=== PATIENT | male | born 1960 | race Caucasian/White ===

== ENCOUNTER 2017-09-02 07:18 | Emergency (ER) | payer MEDICARE, OTHER ==
[~2017-09-02] VITALS: Ht 175.3 cm; Wt 54.5 kg
[2017-09-02 07:22] VITALS: BP 132/70; PULSE 83; RESP 15; TEMP 98.2; O2SAT 99
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
== END 2017-09-02 08:02 | disposition left against medical advice (07) ==
LOC: NEPD 07:18
DX: M79.604 Pain in right leg (principal); F17.200 Nicotine dependence, unspecified, uncomplicated
CPT/HCPCS: 99281

== ENCOUNTER 2017-09-18 01:53 | Emergency (ER) | payer MEDICARE, OTHER ==
[~2017-09-18] VITALS: Ht 175.3 cm; Wt 55.0 kg
[2017-09-18 01:54] VITALS: BP 193/124; PULSE 98; RESP 18; TEMP 98.8; O2SAT 95
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
--- NOTE | 2017-09-18 02:54 | RADRPT ---
EXAM DATE/TIME: 09/18/2017 02:35 [facility] COMPARISON: No previous studies available for comparison. INDICATIONS : Cough. MEDICAL HISTORY : None. SURGICAL HISTORY : None. ENCOUNTER: Initial ACUITY: 1 day PAIN SCORE: Non-responsive. LOCATION: Bilateral chest FINDINGS: A single view of the chest demonstrates the lungs to be symmetrically aerated without evidence of mas s, infiltrate or effusion. The cardiomediastinal contours are unremarkable. Osseous structures are intact. CONCLUSION: Normal examination. Delano Gibson MD on September 18, 2017 at 2:51 Board Certified Radiologist. This report was verified electronically.
[2017-09-18] MEDS ORDERED: AMOXICILLIN 875 MG TAB PO ONE (04:00)
[2017-09-18] MEDS ORDERED: ALBUTEROL SULFATE 90 MCG/ACT HFA 8 GM INHALER INH ONE (04:00)
[2017-09-18 04:12] VITALS: O2SAT 98
[2017-09-18] MEDS ORDERED: AMOX875T PO (04:43)
[2017-09-18] MEDS ORDERED: IBUP1TAB5 PO (05:23)
== END 2017-09-18 05:30 | disposition home or self-care (01) ==
LOC: NEPE 01:53
DX: J44.1 Chronic obstructive pulmonary disease with (acute) exacerbation (principal); F17.210 Nicotine dependence, cigarettes, uncomplicated
CPT/HCPCS: 71010; 94664; 99285

== ENCOUNTER 2017-09-20 01:55 | Emergency (ER) | payer MEDICARE, OTHER ==
[~2017-09-20 01:55] MED LIST: AMOX875T PO; IBUP1TAB5 PO
[2017-09-20 01:56] VITALS: BP 117/72; PULSE 74; RESP 15; TEMP 98.6; O2SAT 100
--- NOTE | 2017-09-20 03:00 | PD ---
HPI Chief Complaint: Injury Time Seen by Provider: 02:48 Travel History International Travel<30 days: No Contact w/Intl Traveler<30days: No Traveled to known affect area: No History of Present Illness HPI 56-year-old white male presents from her department with complaints of pain in his right lower leg. He states that he thinks he may have broken his leg. He states that he had a injury for 5 days ago. Since then he has had problems ambulating. He has wrapped a cord around his leg and hopes to help with the pain. Pain is mild. Worse with ambulation. No alleviating factor. PFSH Past Medical History Medical History: Denies Significant Hx Hx Anticoagulant Therapy: No Cardiovascular Problems: No Chemotherapy: No Cerebrovascular Accident: No Diabetes: No Diminished Hearing: No Respiratory: No Past Surgical History Hysterectomy: No Tonsillectomy: Yes Other Surgery: Yes (ADNOIDS) Social History Alcohol Use: Yes (occasionally) Tobacco Use: Yes (1PPD) Substance Use: No Allergies-Medications (Allergen,Severity, Reaction): Coded Allergies: No Known Allergies (Unverified Allergy, Unknown, 09/20/17) Reported Meds & Prescriptions Reported Meds & Active Scripts Active Review of Systems General / Constitutional: No: Fever Eyes: No: Visual changes HENT: No: Headaches Cardiovascular: No: Chest Pain or Discomfort Respiratory: No: Shortness of Breath Gastrointestinal: No: Abdominal Pain Genitourinary: No: Dysuria Musculoskeletal: Positive: Pain, No: Myalgias, Arthralgias, Limited ROM, Weakness Skin: No Rash Neurologic: No: Weakness, Paresthesia Psychiatric: No: Depression Endocrine: No: Polydipsia Hematologic/Lymphatic: No: Easy Bruising Physical Exam Narrative GENERAL: This is a well-nourished, well-developed patient, in no apparent distress. SKIN: No rashes, ecchymoses or lesions. Warm and dry. HEAD: Atraumatic. Normocephalic. EYES: PERRL, EOMI, no discharge or injection. No scleral icterus. EARS: Clear NOSE: Nasal turbinates appear normal. THROAT: Mucosa pink and moist. Airway patent. NECK: Trachea midline. supple, moves head freely. LUNGS: Clear to auscultation. CV: Regular in rhythm. ABDOMEN: Soft nontender. EXT: No clubbing cyanosis. The patient is up and ambulatory with a normal steady gait. He has intact sensation with good distal pulses. Patient complains of pain in the right lower pretibial region although there is no reproducible pain on exam. Her calf is supple. There is no cords. No Homans sign. There is no bony tenderness to palpation or percussion. His right lower leg compared to the left lower leg is unremarkable. His legs are tanned and warm. There are no color, temperature or size differences. He has intact sensation. Data Data Last Documented VS Vital Signs Date Time Temp Pulse Resp B/P (MAP) Pulse Ox O2 Delivery O2 Flow Rate FiO2 09/20/17 01:56 98.6 74 15 117/72 (87) 100 Room Air Orders Orders Ed Discharge Order (09/20/17 02:54) MDM Medical Decision Making Medical Screen Exam Complete: Yes Emergency Medical Condition: Yes Medical Record Reviewed: Yes Differential Diagnosis MDM: High Differential diagnoses: Fracture, sprain, strain, dislocation, contusion, neurovascular injury Narrative Course Patient's exam is unremarkable. He moves freely about the room. I do not believe there is any need for imaging at this time. There is no bony tenderness. There is no signs of any vascular injury or DVT. It is unclear whether this is a malingering activity on the patient's behalf to [facility]. The patient appears homeless. He has had multiple ER visits here recently. Diagnosis Primary Impression: Right leg pain Additional Impression: Homelessness Patient Instructions: General Instructions Additional Instructions: Rest. Elevation. Tylenol for pain. Do not wrap anything around her leg. Follow-up with a medical doctor in the next 3-5 days. Return to the ER for any problems Med/Other Pt SpecificInfo: No Meds Exist/No RX given Disposition: DISCHARGE HOME Condition: Stable Bruce Fontenot Sep 20, 2017 03:00
== END 2017-09-20 03:35 | disposition home or self-care (01) ==
LOC: NEPD 01:55
DX: M79.661 Pain in right lower leg (principal); F17.200 Nicotine dependence, unspecified, uncomplicated; Z59.0 Homelessness; X58.XXXA Exposure to other specified factors, initial encounter
CPT/HCPCS: 99282

== ENCOUNTER 2017-09-26 05:15 | Emergency (ER) | payer MEDICARE, OTHER ==
[~2017-09-26] VITALS: Ht 175.3 cm; Wt 55.0 kg
[2017-09-26 05:17] VITALS: BP 148/76; PULSE 83; RESP 18; TEMP 98.1; O2SAT 96
[2017-09-26] MEDS ORDERED: NAPR500T2 PO (05:29)
[2017-09-26] MEDS ORDERED: KETOROLAC TROMETHAMINE 60 MG/2 ML (IM) VIAL IM ONE (05:30)
--- NOTE | 2017-09-26 05:33 | PD ---
HPI Chief Complaint: Injury Time Seen by Provider: 05:28 Travel History International Travel<30 days: No Contact w/Intl Traveler<30days: No Traveled to known affect area: No History of Present Illness HPI 56-year-old male presents for evaluation of right leg pain. He reports that 3 weeks ago he fell and landed on his right leg. Since then he has had right pretibial leg pain which is sharp and worse when walking. He has tried taking [id number] Tylenol but symptoms persist which prompted evaluation. Denies numbness, tingling, weakness. He has no other complaints at this time. He is homeless and has brought most of his belongings with him. PFSH Past Medical History Hx Anticoagulant Therapy: No Cardiovascular Problems: No Chemotherapy: No Cerebrovascular Accident: No Diabetes: No Diminished Hearing: No Respiratory: No Tetanus Vaccination: Unknown Past Surgical History Hysterectomy: No Tonsillectomy: Yes Other Surgery: Yes (ADNOIDS) Social History Alcohol Use: Yes (occasionally) Tobacco Use: Yes (1PPD) Substance Use: No Allergies-Medications (Allergen,Severity, Reaction): Coded Allergies: No Known Allergies (Unverified Allergy, Unknown, 09/20/17) Reported Meds & Prescriptions Reported Meds & Active Scripts Active Naproxen 500 Mg Tab 500 Mg PO BID 7 Days Review of Systems Musculoskeletal: Positive: Pain, No: Limited ROM Skin: Positive Other (denies open wounds) Physical Exam Narrative GENERAL: Well-developed well-nourished male in no acute distress SKIN: Warm and dry. HEAD: Atraumatic. Normocephalic. EYES: Pupils equal and round. No scleral icterus. No injection or drainage. ENT: No nasal bleeding or discharge. Mucous membranes pink and moist. NECK: Trachea midline. No JVD. CARDIOVASCULAR: Regular rate and rhythm. No murmur appreciated. RESPIRATORY: No accessory muscle use. Clear to auscultation. Breath sounds equal bilaterally. GASTROINTESTINAL: Abdomen soft, non-tender, nondistended. Hepatic and splenic margins not palpable. MUSCULOSKELETAL: There is no reproducible tenderness to palpation to the right leg. Bilateral lower extremities are symmetrical with no lower extremity edema. 2+ dorsalis pedis and posterior tibial pulses bilaterally. Ambulatory in the ED. Full spontaneous range of motion of the hips, knees, ankles, toes. NEUROLOGICAL: Awake and alert. No obvious cranial nerve deficits. Motor grossly within normal limits. Normal speech. PSYCHIATRIC: Appropriate mood and affect; insight and judgment normal. Data Data Last Documented VS Vital Signs Date Time Temp Pulse Resp B/P (MAP) Pulse Ox O2 Delivery O2 Flow Rate FiO2 09/26/17 05:17 98.1 83 18 148/76 (100) 96 Orders Orders Ketorolac Inj (Toradol Inj) (09/26/17 05:30) Ed Discharge Order (09/26/17 05:28) MDM Medical Decision Making Medical Screen Exam Complete: Yes Emergency Medical Condition: Yes Medical Record Reviewed: Yes Differential Diagnosis Malingering, right leg strain, stress fracture of the tibia, contusion Narrative Course Physical examination is unremarkable. He has no evidence of vascular insufficiency, DVT. He has no evidence of traumatic fracture. He has no point bony tenderness to suggest a stress fracture. I suspect some degree of malingering secondary to homelessness. Regardless, he'll be given a short course of NSAIDs. Diagnosis Primary Impression: Right leg pain Additional Instructions: Medication as needed. Follow-up with primary care as needed and return for any emergent medical conditions. Med/Other Pt SpecificInfo: Prescription(s) given Scripts Naproxen (Naproxen) 500 Mg Tab 500 MG PO BID for 7 Days, #14 TAB 0 Refills Prov: Sarah Teague MD 09/26/17 Disposition: 01 DISCHARGE HOME Condition: Stable Aditya Brian Sep 26, 2017 05:33
== END 2017-09-26 05:48 | disposition home or self-care (01) ==
LOC: NEPD 05:15
DX: M79.604 Pain in right leg (principal); F17.200 Nicotine dependence, unspecified, uncomplicated; Z59.0 Homelessness
CPT/HCPCS: 96372; 99283; J1885

== ENCOUNTER 2017-09-29 02:25 | Emergency (ER) | payer MEDICARE, OTHER ==
[~2017-09-29] VITALS: Ht 165.1 cm; Wt 68.0 kg
[~2017-09-29 02:25] MED LIST changes: -AMOX875T PO; -IBUP1TAB5 PO; +NAPR500T2 PO
[2017-09-29 02:30] VITALS: BP 170/78; PULSE 75; RESP 18; TEMP 97.9; O2SAT 97
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
== END 2017-09-29 03:16 | disposition home or self-care (01) ==
LOC: NEPD 02:25
DX: M79.661 Pain in right lower leg (principal); F17.200 Nicotine dependence, unspecified, uncomplicated; Z59.0 Homelessness; Z76.5 Malingerer [conscious simulation]
CPT/HCPCS: 99281

== ENCOUNTER 2017-09-30 03:38 | Emergency (ER) | payer MEDICARE, OTHER ==
[~2017-09-30] VITALS: Ht 172.7 cm; Wt 70.0 kg
[2017-09-30 03:50] VITALS: BP 152/72; PULSE 78; RESP 20; TEMP 98.2; O2SAT 98
--- NOTE | 2017-09-30 03:56 | PD ---
HPI Chief Complaint: Musculoskeletal Complaint Time Seen by Provider: 03:52 Travel History International Travel<30 days: No Contact w/Intl Traveler<30days: No Traveled to known affect area: No History of Present Illness HPI 56-year-old white male well-known to the medical staff and myself for multiple ER visits. The patient once again returns complaining of right leg pain. The patient has not filled his prescriptions. He has not followed up. The patient has no other complaints. Symptoms are moderate. PFSH Past Medical History Narrative Medical Chronic leg pain, homelessness Hx Anticoagulant Therapy: No Cardiovascular Problems: No Chemotherapy: No Cerebrovascular Accident: No Diabetes: No Diminished Hearing: No Respiratory: No Immunizations Current: Yes Past Surgical History Hysterectomy: No Tonsillectomy: Yes Other Surgery: Yes (ADNOIDS) Social History Alcohol Use: Yes (occasionally) Tobacco Use: Yes (1PPD) Substance Use: No Allergies-Medications (Allergen,Severity, Reaction): Coded Allergies: No Known Allergies (Unverified Allergy, Unknown, 09/29/17) Reported Meds & Prescriptions Reported Meds & Active Scripts Active No Active Prescriptions or Reported Medications Review of Systems General / Constitutional: No: Fever Eyes: No: Visual changes HENT: No: Headaches Cardiovascular: No: Chest Pain or Discomfort Respiratory: No: Shortness of Breath Gastrointestinal: No: Abdominal Pain Genitourinary: No: Dysuria Musculoskeletal: Positive: Arthralgias, Limited ROM, Pain Skin: No Rash Neurologic: No: Weakness Psychiatric: No: Depression Endocrine: No: Polydipsia Hematologic/Lymphatic: No: Easy Bruising Physical Exam Narrative GENERAL: This is a well-nourished, well-developed patient, in no apparent distress. SKIN: No rashes, ecchymoses or lesions. Warm and dry. HEAD: Atraumatic. Normocephalic. EYES: PERRL, EOMI, no discharge or injection. No scleral icterus. EARS: Clear NOSE: Nasal turbinates appear normal. THROAT: Mucosa pink and moist. Airway patent. NECK: Trachea midline. supple, moves head freely. LUNGS: Clear to auscultation. CV: Regular in rhythm. ABDOMEN: Soft nontender. EXT: No clubbing cyanosis or edema. Examination of the right lower extremity compared to the left lower extremity shows no obvious deformity. No color difference. No temperature difference no size difference. No Homans sign. He has intact gross sensation and good distal pulses. Data Data Last Documented VS Vital Signs Date Time Temp Pulse Resp B/P (MAP) Pulse Ox O2 Delivery O2 Flow Rate FiO2 09/30/17 03:50 98.2 78 20 152/72 (98) 98 Orders Orders Naproxen (Naprosyn) (09/30/17 04:00) Ed Discharge Order (09/30/17 03:52) MDM Medical Decision Making Medical Screen Exam Complete: Yes Emergency Medical Condition: Yes Medical Record Reviewed: Yes Differential Diagnosis MDM: High Differential diagnoses: Fracture, sprain, strain, dislocation, contusion, neurovascular injury Narrative Course This is chronic leg pain Diagnosis Primary Impression: Chronic leg pain Qualified Codes: M79.604 - Pain in right leg; G89.29 - Other chronic pain Referrals: [facility] 1 day Patient Instructions: General Instructions Additional Instructions: Rest. Fill your prescription for your pain medication and taken as directed. Follow-up with the [facility] on Sunday. Med/Other Pt SpecificInfo: No Change to Meds Scripts No Active Prescriptions or Reported Meds Disposition: 01 DISCHARGE HOME Condition: Stable Bruce Fontenot Sep 30, 2017 03:56
[2017-09-30] MEDS ORDERED: NAPROXEN 500 MG TAB PO ONE (04:00)
== END 2017-09-30 04:30 | disposition home or self-care (01) ==
LOC: NEPD 03:38
DX: M79.604 Pain in right leg (principal); G89.29 Other chronic pain; F17.200 Nicotine dependence, unspecified, uncomplicated; Z59.0 Homelessness
CPT/HCPCS: 99282